=== PATIENT | female | born 1990 | race Two or more races ===

== ENCOUNTER 2022-06-15 16:48 | Emergency (ER) | payer OTHER ==
[~2022-06-15] VITALS: Ht 160 cm; Wt 90.7 kg
[2022-06-15] MEDS ORDERED: PRENATAL + DHA1 EAC1 PO (17:14)
== END 2022-06-16 00:53 | disposition left against medical advice (07) ==
LOC: ER 16:48
DX: O20.9 Hemorrhage in early pregnancy, unspecified (principal); O99.511 Diseases of the respiratory system complicating pregnancy, first trimester; Z3A.09 9 weeks gestation of pregnancy; J45.909 Unspecified asthma, uncomplicated; Z91.013 Allergy to seafood

== ENCOUNTER → 2022-10-10 | Outpatient (CLI) | payer OTHER ==
[~2022-10-10] MED LIST: PRENATAL + DHA1 EAC1 PO
== END | disposition home or self-care (01) ==
LOC: NST 18:39
PROVIDERS: ATTEND Obstetrics & Gynecology
DX: Z34.83 Encounter for supervision of other normal pregnancy, third trimester (principal)

== ENCOUNTER 2022-11-21 12:22 | Outpatient (CLI) | payer OTHER | END 2022-11-21 13:37 | disposition home or self-care (01) | LOC: NST 12:22 | PROVIDERS: ATTEND Obstetrics & Gynecology Maternal & Fetal Medicine | DX: Z34.83 Encounter for supervision of other normal pregnancy, third trimester (principal) ==

== ENCOUNTER 2022-12-05 16:08 | Outpatient (CLI) | payer OTHER | END 2022-12-05 16:34 | disposition home or self-care (01) | LOC: NST 16:08 | PROVIDERS: ATTEND Obstetrics & Gynecology Gynecology | DX: Z34.83 Encounter for supervision of other normal pregnancy, third trimester (principal) ==

== ENCOUNTER 2023-01-02 09:30 | Inpatient (IN) | payer OTHER ==
[~2023-01-02] VITALS: Ht 152.4 cm; Wt 97.1 kg
[2023-01-02] MEDS ORDERED: PROAIR RESPICL90 MCG IH (12:37)
[2023-01-02] MEDS ORDERED: PULMICORT FLE180 MCG IH (12:37)
[2023-01-02] MEDS ORDERED: ZYRTEC10 MG PO (12:38)
== END 2023-01-05 13:01 | disposition home or self-care (01) | DRG 785 ==
LOC: OB/GYN 09:30 → LDR 10:41 → O/R 15:32 → OB/GYN 18:41
PROVIDERS: Obstetrics & Gynecology; Obstetrics & Gynecology Gynecology; ADMIT Obstetrics & Gynecology Maternal & Fetal Medicine; ATTEND Obstetrics & Gynecology Maternal & Fetal Medicine
PROC: 0UB70ZZ Excision of Bilateral Fallopian Tubes, Open Approach (ICD-10-PCS; 2023-01-02)
PROC: 4A1HXCZ Monitoring of Products of Conception, Cardiac Rate, External Approach (ICD-10-PCS; 2023-01-02)
PROC: 10D00Z1 Extraction of Products of Conception, Low, Open Approach (ICD-10-PCS; principal; 2023-01-02 14:30)
DX: O34.211 Maternal care for low transverse scar from previous cesarean delivery (principal); Z3A.37 37 weeks gestation of pregnancy; Z37.0 Single live birth; Z20.822 Contact with and (suspected) exposure to COVID-19